=== PATIENT | male | born 1970 | race African-American/Black ===

== ENCOUNTER 2025-03-17 11:43 | Emergency (ER) | payer OTHER, BC ==
[~2025-03-17] VITALS: Ht 177.8 cm; Wt 84.8 kg
[2025-03-17 11:58] VITALS: TEMP 98.4
[2025-03-17] MEDS ORDERED: ACETAMINOPHEN ES 500 MG TABLET ONE (12:20)
[2025-03-17 12:22] LABS: BASOPHILS % (AUTO) 0.5 % (0.0-2.0); EOSINOPHILS % (AUTO) 0.5 % (0.0-6.0); HEMATOCRIT 46 % (39-51); LYMPHOCYTES # (AUTO) 1.2 K/uL (0.8-4.8); LYMPHOCYTES % (AUTO) 18.4 % (20.0-44.0); MEAN CORPUSCULAR HEMOGLOBIN 31 PG (26.0-33.0); MEAN CORPUSCULAR HGB CONC 35 g/dl (31.0-36.0); MEAN CORPUSCULAR VOLUME 88 fL (80-96); MONOCYTES # (AUTO) 0.7 K/uL (0.1-1.30); MONOCYTES % (AUTO) 9.7 % (2.0-12.0); NEUTROPHILS # (AUTO) 4.7 K/uL (1.8-8.9); NEUTROPHILS % (AUTO) 70.9 % (43.0-81.0); PLATELET COUNT (AUTO) 229 K/uL (150-450); RED BLOOD CELL COUNT(AUTO) 5.21 MIL/uL (4.5-6.0); RED CELL DISTRIBUTION WIDTH 14.4 % (11.5-15.0); WHITE BLOOD COUNT (AUTO) 6.7 K/uL (4.3-11.0)
[2025-03-17] MEDS: ACETAMINOPHEN ES 500 MG TABLET PO ONE (12:24)
[2025-03-17] MEDS: IV NS 0.9% 1,000 ML BAG IV ONE (12:25)
[2025-03-17 12:31] LABS: CALCIUM, SERUM 9.9 mg/dL (8.5-10.1); CARBON DIOXIDE 27 mmol/L (21-32); CHLORIDE 103 mmol/L (98-107); GLUCOSE 101 mg/dL (74-106); POTASSIUM 2.8 mmol/L (3.5-5.1); SODIUM SERUM 138 mmol/L (136-145); UREA NITROGEN, BLOOD 9 mg/dL (7-18)
[2025-03-17] MEDS ORDERED: CT SWABBABLE VALVE TRANS SET 1 EA INFUS.SET MC ONE (13:04)
[2025-03-17] MEDS ORDERED: IOHEXOL-300 100 ML VIAL IV ONE (13:04)
[2025-03-17] MEDS ORDERED: IV NS 0.9% 250 ML IV ONE (13:06)
[2025-03-17 14:31] VITALS: BP 125/84; O2SAT 98
== END 2025-03-17 14:15 | disposition home or self-care (01) ==
LOC: ER 11:52
DX: S20.219A Contusion of unspecified front wall of thorax, initial encounter (principal); S09.8XXA Other specified injuries of head, initial encounter; I10 Essential (primary) hypertension; V43.92XA Unspecified car occupant injured in collision with other type car in traffic accident, initial encounter; Y93.89 Activity, other specified; Y92.415 Exit ramp or entrance ramp of street or highway as the place of occurrence of the external cause; Y99.8 Other external cause status
CPT/HCPCS: 99285; 71260; 96360; 93005; 73130 ×2; 70450; 73110; 74177; 85025; 80048; 36415; 84484; J7030 ×2; J7050; A4223; Q9967